=== PATIENT | female | born 1960 | race American Indian/Alaskan Native ===

== ENCOUNTER 2020-11-06 13:41 | Observation (INO) | payer OTHER ==
[2020-11-06] MEDS ORDERED: METOCLOPRAMIDE 10 MG/2 ML INJ IV ONE (16:37)
[2020-11-06] MEDS ORDERED: LACTATED RINGERS 1,000 ML IV ONE (16:37)
[2020-11-06] MEDS ORDERED: MORPHINE 4 MG/1 ML INJ IV ONE (16:37)
[2020-11-06] MEDS ORDERED: NITROGLYCERIN 0.4 MG TAB SUBL SL PRN ×2 (16:38→23:58)
--- NOTE | 2020-11-06 16:43 | Emergency Department Report ---
ED General Adult HPI - General Chief complaint: Headache Stated complaint: Headache, chest pain, back pain, lower abdominal pain PUI?: No Time Seen by Provider: 11/06/20 16:10 Source: patient, RN notes reviewed Mode of arrival: Ambulatory Limitations: No Limitations - History of Present Illness Initial comments: The patient was evaluated in the emergency department for symptoms described in the history of present illness. He/she was evaluated in the context of the global COVID-19 pandemic, which necessitated consideration that the patient might be at risk for infection with the virus that causes COVID-19. Institutional protocols and algorithms that pertain to the evaluation of patients at risk for COVID-19 are in a state of rapid change based on information released by regulatory bodies including the CDC and federal and state organizations. These policies and algorithms were followed during the patient's care in the emergency department. Please note that these policies, procedures and recommendations changed on a rapid basis. Past medical history: Diabetes, hypertension, obesity, glaucoma Patient is a 60-year-old female. She is not known to myself previously. She is referred to the emergency room by her primary care doctor for hypertension. The patient presents to the ER with multiple complaints. Patient's first complaint is right sided paralumbar lower back pain. This is present for 2 to 3 days. It does not radiate anywhere. It does not move down the legs. There is no saddle anesthesia, bladder or bowel retention or incontinence. No nausea, vomiting or diarrhea. No extremity weakness or numbness. No urinary symptoms. Has not improved with [id number] analgesia. The patient states no history of abdominal surgeries. The patient's next complaint is headache. The headache is frontal. The headache is present for 2 days. The headache is not sudden or thunderclap in nature. The headache is not maximal in intensity. That patient also describes nonspecific binocular blurry vision, present for a few days, "because I think I ran out of my brimonidine." The patient denies ocular pain. The patient denies temporal headache, and jaw claudication. The patient's next complaint is chest pain. The chest pain is central and right-sided. It does not radiate to the back, arms or neck. There is no vomiting. There is mild sweating. The patient denies travel, surgery, immob ilization, DVT and pulmonary embolism risk factors. Patient endorses a personal history of premature coronary artery disease in her father, who of a myocardial infarction at the age of 54. The patient herself has taken aspirin within the past week x2, has not had a cardiac risk ratification recently. To the best of her knowledge, there is no personal family history of DVT or pulmonary embolism. Mother and sibling medical history noncontributory. The patient has not taken any analgesia today The patient denies loss of taste and smell. The patient is COVID-19 vaccinated. The patient denies Covid exposures. -: Gradual, days(s) Location: head, chest, back Severity scale (0 -10): 0 Quality: aching Consistency: intermittent Improves with: rest Worsens with: movement - Related Data Allergies Allergy/AdvReac Type Severity Reaction Status Date / Time No Known Allergies Allergy Unverified 11/06/20 14:13 ED Review of Systems ROS: Stated complaint: HYPERTENSIVE Other details as noted in HPI Constitutional: other (Denies loss of taste and). denies: fever, malaise, weakness Eyes: eye pain, vision change. denies: eye discharge ENT: denies: epistaxis Respiratory: denies: cough Cardiovascular: chest pain Gastrointestinal: denies: nausea, vomiting, diarrhea, hematemesis, melena, hematochezia Genitourinary: denies: dysuria Musculoskeletal: back pain Neurological: headache. denies: weakness, numbness, paresthesias Hematological/Lymphatic: denies: easy bleeding ED Physical Exam - General Limitations: No Limitations General appearance: alert, in no apparent distress - Head Head exam: Present: atraumatic, normocephalic - Eye Eye exam: Present: normal appearance, PERRL, EOMI, other (Visual acuity intact to finger counting, color perception, reading at a close distance). Absent: nystagmus - ENT ENT exam: Present: normal exam, normal orophraynx, mucous membranes moist, normal external ear exam - Neck Neck exam: Present: normal inspection, full ROM. Absent: tenderness, meningismus - Respiratory Respiratory exam: Present: normal lung sounds bilaterally. Absent: respiratory distress, wheezes, rales, rhonchi, stridor, decreased breath sounds - Cardiovascular Cardiovascular Exam: Present: regular rate, normal rhythm, normal heart sounds. Absent: bradycardia, tachycardia, irregular rhythm, systolic murmur, diastolic murmur, rubs, gallop - GI/Abdominal GI/Abdominal exam: Present: soft, tenderness (Right lower quadrant tenderness to deep palpation). Absent: distended, guarding, rebound, rigid, pulsatile mass - Extremities Exam Extremities exam: Present: normal inspection, full ROM, other (2+ pulses noted in the bilateral upper and lower extremities. There is no palpable cord. negative Homans sign. Muscular compartments are soft. The pelvis is stable.). Absent: pedal edema, calf tenderness - Back Exam Back exam: Present: normal inspection. Absent: tenderness, CVA tenderness (R), CVA tenderness (L), paraspinal tenderness, vertebral tenderness - Neurological Exam Neurological exam: Present: alert, oriented X3, other (No facial droop. Tongue midline. Extraocular movements intact bilaterally. Facial sensation intact to light touch in V1, V2, V3 distribution bilaterally. 5 and a 5 strength in 4 extremities. Sensation intact to light touch in 4 extremities.). Absent: motor sensory deficit (There is no past-pointing. There is no pronator drift. There is normal [id number]) - Psychiatric Psychiatric exam: Present: normal affect, normal mood - Skin Skin exam: Present: warm, dry, intact, normal color. Absent: rash ED Course Vital Signs 11/06/20 11/06/20 11/06/20 14:12 15:31 15:32 Temperature 98.6 F Pulse Rate 75 67 Respiratory 16 19 16 Rate Blood Pressure 178/94 154/83 [Right] O2 Sat by Pulse 98 99 98 Oximetry 11/06/20 20:10 Temperature 98.2 F Pulse Rate 63 Respiratory 15 Rate Blood Pressure 143/65 [Right] O2 Sat by Pulse 98 Oximetry - Reevaluation(s) Reevaluation #1: 11/06/20 16:42 Differential diagnosis, including but not limited to: Renal colic, appendicitis, psoas abscess, mechanical back pain, migraine headache, tension headache, cluster headache, GERD, gastritis, hiatal hernia, pneumonia, acute coronary sy ndrome, pulmonary embolism Assessment and plan 60-year-old female with multiple complaints. Complaints 1, right-sided paralumbar back pain, with right lower quadrant abdominal tenderness on deep palpation. Obtain CT scan of the abdomen pelvis. Treat symptoms. Obtain appropriate laboratory studies, and urinalysis. No pulsatile abdominal mass, and equal strength and sensation in the lower ext remities, this history and examination are not suggestive of epidural compression syndrome. Complaint #2, headache. GCS 15, NIH score of 0. Visual acuity intact to finger counting, color perception, reading at a close distance no temporal tenderness, no claudication, cornea not cloudy, there is no direct or consensual photophobia, and pupillary response is brisk and symmetric bilaterally. Supp ortive care. Complaints #3, chest pain. Moderate risk for major adverse cardiac event as per heart score. Not currently tachycardic, tachypneic or hypoxic, denies DVT and pulmonary embolism risk factors. EKG abnormal, with a left axis, and a left anterior fascicular block. Place patient on cardiac nurse specialist, obtain appropriate laboratory studies, including troponin and D-dimer, given left axis deviation. Obtain CT scan of the chest if required by Marcello-dimer, recommend admission for cardiac risk ratification once initial data points have resulted. I discussed this plan of care with the patient. She has articulated understanding. She is agreeable to this plan of care. All questions answered. Reassess after data points have resulted. 11/06/20 16:43 11/06/20 18:41 Troponin negative. D-dimer elevated. CT angiogram chest ordered. CT scan abdomen pelvis ordered. 11/06/20 22:45 CT scan of the brain negative for acute findings. CT scan of the chest negative for pulmonary embolism and acute findings. CT scan abdomen pelvis shows hepatic steatosis, as well as fibroid uterus. Urin alysis suggest pyuria with bacteriuria. The patient denies irritative and obstructive urinary symptoms. Patient will be admitted to the medical service for cardiac risk ratification. I discussed this with the patient. She is agreeable to this plan of care. Patient to be admitted to the medical service under the care of Dr. Sherwood ED Medical Decision Making - Lab Data Result diagrams: 11/06/20 17:44 11/06/20 17:44 Vital Signs 11/06/20 11/06/20 11/06/20 14:12 15:31 15:32 Temperature 98.6 F Pulse Rate 75 67 Respiratory 16 19 16 Rate Blood Pressure 178/94 154/83 [Right] O2 Sat by Pulse 98 99 98 Oximetry Lab Results 11/06/20 Range/Units 15:21 POC Glucose 130 H (70-105) mg/dL - EKG Data -: EKG Interpreted by Dc EKG shows normal: sinus rhythm Rate: normal - EKG Data When compared to previous EKG there are: previous EKG unavailable 11/06/20 16:46 EKG is interpreted at 14: 19 Sinus rhythm, 73 bpm. Normal P wave axis, left axis deviation, left anterior fascicular block, left ventricular hypertrophy. QTC 3 9 8 ms. Abnormal EKG. Not a STEMI. No prior for comparison. - Radiology Data Radiology results: pending, report reviewed, image reviewed CHEST 1 VIEW 11/06/2020 4:15 PM INDICATION / CLINICAL INFORMATION: acute chest pain. COMPARISON: None available. FINDINGS: SUPPORT DEVICES: None. HEART / MEDIASTINUM: No significant abnormality. LUNGS / PLEURA: No significant pulmonary or pleural abnormality. No pneumothorax. ADDITIONAL FINDINGS: No significant additional findings. IMPRESSION: 1. No acute findings. Signer Name: Yazan Castillo MD Signed: 11/06/2020 4:16 PM Workstation Name: [id number] CT HEAD WITHOUT CONTRAST INDICATION / CLINICAL INFORMATION: Headache and blurry vision. TECHNIQUE: All CT scans at this location are performed using CT dose reduction for ALARA by means of automated exposure control. COMPARISON: None available. FINDINGS: HEMORRHAGE: None. EXTRA-AXIAL SPACES: Normal in size and morphology for the patient's age. VENTRICULAR SYSTEM: Normal in size and morphology for the patient's age. CEREBRAL PARENCHYMA: No significant abnormality. No acute territorial infarct. MIDLINE SHIFT / HERNIATION: None. CEREBELLUM / BRAINSTEM: No significant abnormality. ORBITS: Normal as visualized. SOFT TISSUES: Mild soft tissue swelling of the left forehead. SKULL: No significant abnormality. PARANASAL SINUSES / MASTOID AIR CELLS: Normal as visualized. ADDITIONAL FINDINGS: None. IMPRESSION: 1. No acute intracranial abnormality. 2. Mild left forehead soft tissue swelling. Signer Name: Marcello Farooq MD Signed: 11/06/2020 9:05 PM CTA CHEST WITH CONTRAST INDICATION / CLINICAL INFORMATION: Acute chest pain, left axis deviation. TECHNIQUE: Axial CT images were obtained through the chest after injection of 100 mL Omnipaque 350 IV contrast. 3 plane MIP and/or 3D reconstructions were produced. All CT scans at this location are performed using CT dose reduction for [employer] by means of automated exposure control. COMPARISON: None available. FINDINGS: PULMONARY ARTERIES: No pulmonary emboli. THORACIC AORTA: No significant abnormality. HEART: No significant abnormality. CORONARY ARTERY CALCIFICATION: None. MEDIASTINUM / VICKIE: No significant abnormality. PLEURA: No pleural effusion. No pneumothorax. LUNGS: No acute air space or interstitial disease. Small amount of mucus in the left mainstem bronchus. ADDITIONAL FINDINGS: None. UPPER ABDOMEN: No acute findings. SKELETAL STRUCTURES: No significant osseous abnormality. IMPRESSION: 1. No CT evidence for pulmonary embolism. 2. No acute pulmonary or pleural findings. Small amount of mucus in the left mainstem bronchus. Signer Name: Marcello Farooq MD Signed: 11/06/2020 9:08 PM Workstation Name: [id number] CT ABDOMEN AND PELVIS WITH CONTRAST INDICATION / CLINICAL INFORMATION: Acute right lower quadrant, right paralumbar back. TECHNIQUE: Axial CT images were obtained through the abdomen and pelvis after 100 mL Omnipaque [address] scans at this location are performed using CT dose reduction for ALARA by means of automated exposure control. COMPARISON: None available. FINDINGS: LOWER CHEST: No significant abnormality. LIVER: Mildly enlarged and hypodense characteristic of fatty infiltration. GALLBLADDER: No significant abnormality. BILE DUCTS: No significant abnormality. PANCREAS: No significant abnormality. SPLEEN: No significant abnormality. ADRENALS: No significant abnormality. RIGHT KIDNEY / URETER: No significant abnormality. LEFT KIDNEY / URETER: No significant abnormality. STOMACH / SMALL BOWEL: No significant abnormality. COLON: Diverticulosis without acute inflammation. APPENDIX: Not visualized. PERITONEUM: No free fluid. No free air. No fluid collection. LYMPH NODES: No significant adenopathy. AORTA / ARTERIES: No significant abnormality. IVC / VEINS: No significant abnormality. URINARY BLADDER: No significant abnormality. REPRODUCTIVE ORGANS: Enlarged containing multiple fibroids some of which are calcified. ADDITIONAL FINDINGS: None. SKELETAL SYSTEM: No significant abnormality. IMPRESSION: 1. No acute process in the abdomen or pelvis. No inflammatory process. 2. Enlarged uterus with multiple fibroids. 3. Hepatic steatosis. Signer Name: Marcello Farooq MD Signed: 11/06/2020 9:11 PM Critical care attestation.: If time is entered above; I have spent that time in minutes in the direct care of this critically ill patient, excluding procedure time. ED Disposition Clinical Impression: Hypertension, BMI 34.0-34.9,adult, Right lower quadrant abdominal pain, Acute chest pain, Headache, Bacteriuria with pyuria, Fibroid, uterine, Hepatic steatosis Disposition: 09 ADMITTED INPATIENT Is pt being admited?: Yes Does the pt Need Aspirin: No Condition: Good Instructions: Chest Pain (ED), Hypertension (ED) Referrals: PRIMARY CARE,MD [Primary Care Provider] - 3-5 Days Heart Score - HEART Score History: Slightly suspicious EKG: Non-specific Age: 45-65 Risk factors: > 3 risk factors or hx of atherosclerotic disease (Obesity, diabetes, hypertension, family history) Troponin: < normal limit HEART Score: 4 - EKG Read Time Time EKG Completed: 14:19 EKG Read Time: 14:19 - Critical Actions Critical Actions: 4-6 pts:12-16.6% risk of adverse cardiac event. Should be admitted
[2020-11-06 17:15] LABS: Bacteria,Urine 1+ /HPF (Negative); Bilirubin,Urine NEG (Negative); Blood,Urine NEG (Negative); Color,Urine Yellow (Yellow); Mucus,Urine FEW /HPF; Protein,Urine <15 mg/dL mg/dL (Negative); Urobilinogen,Urine < 2.0 mg/dL (<2.0)
--- NOTE | 2020-11-06 17:21 | XRay Report ---
CHEST 1 VIEW 11/06/2020 4:15 PM INDICATION / CLINICAL INFORMATION: acute chest pain. COMPARISON: None available. FINDINGS: SUPPORT DEVICES: None. HEART / MEDIASTINUM: No significant abnormality. LUNGS / PLEURA: No significant pulmonary or pleural abnormality. No pneumothorax. ADDITIONAL FINDINGS: No significant additional findings. IMPRESSION: 1. No acute findings. Signer Name: Yazan Castillo MD Signed: 11/06/2020 5:16 PM Workstation Name: [id number]
[2020-11-06 17:57] LABS: Basophils % (Auto) 0.7 % (0.0-1.8); Eosinophils # (Auto) 0.1 K/mm3 (0.0-0.4); Eosinophils % (Auto) 0.9 % (0.0-4.3); Hemoglobin 14.3 gm/dl (10.1-14.3); Lymphocytes # (Auto) 2.3 K/mm3 (1.2-5.4); Mean Corpuscular HGB Conc 34 % (30-34); Mean Corpuscular Volume 87 fl (79-97); Monocytes # (Auto) 0.5 K/mm3 (0.0-0.8); Monocytes % (Auto) 8.1 % (0.0-7.3); Platelet Count 231 K/mm3 (140-440); Red Blood Count 4.85 M/mm3 (3.65-5.03); Red Cell Distribution Width 14.1 % (13.2-15.2)
[2020-11-06 18:06] LABS: INR 0.98 (0.87-1.13)
[2020-11-06 18:17] LABS: Alanine Aminotransferase 19 units/L (7-56); Albumin 4.5 g/dL (3.9-5); Blood Urea Nitrogen 13 mg/dL (7-17); Hemolysis Index 11
[2020-11-06 18:31] LABS: BUN/Creatinine Ratio 33
--- NOTE | 2020-11-06 22:09 | Cat Scan Report ---
CT HEAD WITHOUT CONTRAST INDICATION / CLINICAL INFORMATION: Headache and blurry vision. TECHNIQUE: All CT scans at this location are performed using CT dose reduction for ALARA by means of automated exposure control. COMPARISON: None available. FINDINGS: HEMORRHAGE: None. EXTRA-AXIAL SPACES: Normal in size and morphology for the patient's age. VENTRICULAR SYSTEM: Normal in size and morphology for the patient's age. CEREBRAL PARENCHYMA: No significant abnormality. No acute territorial infarct. MIDLINE SHIFT / HERNIATION: None. CEREBELLUM / BRAINSTEM: No significant abnormality. ORBITS: Normal as visualized. SOFT TISSUES: Mild soft tissue swelling of the left forehead. SKULL: No significant abnormality. PARANASAL SINUSES / MASTOID AIR CELLS: Normal as visualized. ADDITIONAL FINDINGS: None. IMPRESSION: 1. No acute intracranial abnormality. 2. Mild left forehead soft tissue swelling. Signer Name: Marcello Farooq MD Signed: 11/06/2020 10:05 PM Workstation Name: [id number]
--- NOTE | 2020-11-06 22:12 | Cat Scan Report ---
CTA CHEST WITH CONTRAST INDICATION / CLINICAL INFORMATION: Acute chest pain, left axis deviation. TECHNIQUE: Axial CT images were obtained through the chest after injection of 100 mL Omnipaque 350 IV contrast. 3 plane MIP and/or 3D reconstructions were produced. All CT scans at this location are per formed using CT dose reduction for ALARA by means of automated exposure control. COMPARISON: None available. FINDINGS: PULMONARY ARTERIES: No pulmonary emboli. THORACIC AORTA: No significant abnormality. HEART: No significant abnormality. CORONARY ARTERY CALCIFICATION: None. MEDIASTINUM / VICKIE: No significant abnormality. PLEURA: No pleural effusion. No pneumothorax. LUNGS: No acute air space or interstitial disease. Small amount of mucus in the left mainstem bronchu s. ADDITIONAL FINDINGS: None. UPPER ABDOMEN: No acute findings. SKELETAL STRUCTURES: No significant osseous abnormality. IMPRESSION: 1. No CT evidence for pulmonary embolism. 2. No acute pulmonary or pleural findings. Small amount of mucus in the left mainstem bronchus. Signer Name: Marcello Farooq MD Signed: 11/06/2020 10:08 PM Workstation Name: [id number]
--- NOTE | 2020-11-06 22:16 | Cat Scan Report ---
CT ABDOMEN AND PELVIS WITH CONTRAST INDICATION / CLINICAL INFORMATION: Acute right lower quadrant, right paralumbar back. TECHNIQUE: Axial CT images were obtained through the abdomen and pelvis after 100 mL Omnipaque [address] scans at this location are performed using CT dose reduction for ALARA by means of automated exposure control. COMPARISON: None available. FINDINGS: LOWER CHEST: No significant abnormality. LIVER: Mildly enlarged and hypodense characteristic of fatty infiltration. GALLBLADDER: No significant abnormality. BILE DUCTS: No significant abnormality. PANCREAS: No significant abnormality. SPLEEN: No significant abnormality. ADRENALS: No significant abnormality. RIGHT KIDNEY / URETER: No significant abnormality. LEFT KIDNEY / URETER: No significant abnormality. STOMACH / SMALL BOWEL: No significant abnormality. COLON: Diverticulosis without acute inflammation. APPENDIX: Not visualized. PERITONEUM: No free fluid. No free air. No fluid collection. LYMPH NODES: No significant adenopathy. AORTA / ARTERIES: No significant abnormality. IVC / VEINS: No significant abnormality. URINARY BLADDER: No significant abnormality. REPRODUCTIVE ORGANS: Enlarged containing multiple fibroids some of which are calcified. ADDITIONAL FINDINGS: None. SKELETAL SYSTEM: No significant abnormality. IMPRESSION: 1. No acute process in the abdomen or pelvis. No inflammatory process. 2. Enlarged uterus with multiple fibroids. 3. Hepatic steatosis. Signer Name: Marcello Farooq MD Signed: 11/06/2020 10:11 PM Workstation Name: [id number]
[2020-11-06] MEDS ORDERED: ASPIRIN 81 MG TAB CHEW PO ONE (22:45)
[2020-11-06] MEDS ORDERED: NITROFURANTOIN MONOHYD/M-CRYST 100 MG CAP PO ONE (22:47)
--- NOTE | 2020-11-06 23:52 | History and Physical Report ---
History of Present Illness Date of examination: 11/06/20 Date of admission: 11/06/20 22:47 Chief complaint: chest pain History of present illness: This is 60-year-old who presented to ED with a headache, chest pain and elevated blood pressure. She says she went to urgent care with a complaint of headache and lower back pain, her blood pressure was elevated in urgent care and they sent her to the hospital. Patient has past medical history of hypertension, diabetes, glaucoma and uterine fibroids. patient denies tobacco use, alcohol use, and illicit drug use. Patient reported her father of coronary artery disease and [place] at the age of 54. I reviewed patient medication record, medical record, and vital signs. chest x-ray and CTA of the chest were done with no acute finding. CT of the abdomen and pelvic done -it showed enlarged uterus with multiple fibroids and hepatic steatosis. Echo ordered. Patient may need stress test to rule out cardiac ischemia. Troponin done was negative. environment artist has been consulted Past History Past Medical History: diabetes, hyperthyroidism, hyperlipidemia, other (Uterine fibroid) Past Surgical History: appendectomy, Other (Appendectomy, tubal ligation) Social history: full code. denies: smoking, alcohol abuse, prescription drug abuse, IV drug use Family history: hypertension (Father of [place] at age of 54) Medications and Allergies Allergies Allergy/AdvReac Type Severity Reaction Status Date / Time No Known Allergies Allergy Verified 11/07/20 00:11 Active Meds: Active Medications Nitroglycerin (Nitroglycerin 0.4 Mg Tab Subl) 0.4 mg SL .Q5MIN PRN PRN Reason: Chest Pain Review of Systems Constitutional: weakness Ears, nose, mouth and throat: no epistaxis, no bleeding gums Cardiovascular: chest pain, high blood pressure Respiratory: no congestion Gastrointestinal: melena Genitourinary Female: no urinary frequency, no urgency Rectal: no hemorrhoids Musculoskeletal: muscle weakness, muscle cramps Integumentary: no rash, no pruritis, no redness Neurological: no seizures, no syncope Psychiatric: anxiety Hematologic/Lymphatic: no easy bruising, no easy bleeding, no lymphadenopathy, no lymphedema Allergic/Immunologic: no urticaria Exam - Constitutional Vitals: Temp Pulse Resp BP Pulse Ox 98.2 F 63 18 143/65 98 11/06/20 20:10 11/06/20 20:10 11/06/20 20:10 11/06/20 20:10 11/06/20 20:10 General appearance: Present: mild distress, well-nourished, obese - EENT Eyes: Present: PERRL ENT: hearing intact, clear oral mucosa - Neck Neck: Present: supple, normal ROM - Respiratory Respiratory effort: normal Respiratory: bilateral: CTA - Cardiovascular Heart Sounds: Present: S1 & S2. Absent: rub, click - Extremities Extremities: pulses symmetrical, No edema Peripheral Pulses: within normal limits - Abdominal General gastrointestinal: Present: soft, tender, non-distended, normal bowel sounds Female genitourinary: Present: normal - Integumentary Integumentary: Present: clear, warm, dry - Musculoskeletal Musculoskeletal: gait normal, strength equal bilaterally - Psychiatric Psychiatric: appropriate mood/affect, intact judgment & insight - Neurologic Neurologic: CNII-XII intact, moves all extremities - Allied Health Allied health notes reviewed: nursing HEART Score - HEART Score EKG: Non-specific Age: 45-65 Risk factors: > 3 risk factors or hx of atherosclerotic disease (Obesity, diabetes, hypertension, family history) Troponin: Troponin T < 0.010 ng/mL (0.00-0.029) 11/06/20 17:44 Troponin: < normal limit - Critical Actions Critical Actions: 4-6 pts:12-16.6% risk of adverse cardiac event. Should be admitted Results - Labs CBC & Chem 7: 11/07/20 04:20 11/07/20 04:20 Labs: Abnormal lab results 11/06/20 11/06/20 11/06/20 Range/Units 15:21 17:39 17:44 Lymph % (Auto) 38.0 H (13.4-35.0) % [place] % (Auto) 8.1 H (0.0-7.3) % D-Dimer 448.71 H (0-234) ng/mlDDU Creatinine (0.6-1.2) mg/dL Glucose (65-100) mg/dL POC Glucose 130 H (70-105) mg/dL 11/06/20 Range/Units 17:44 Lymph % (Auto) (13.4-35.0) % [place] % (Auto) (0.0-7.3) % D-Dimer (0-234) ng/mlDDU Creatinine 0.4 L (0.6-1.2) mg/dL Glucose 135 H (65-100) mg/dL POC Glucose (70-105) mg/dL Assessment and Plan - Patient Problems (1) Acute chest pain Current Visit: Yes Status: Acute Plan to address problem: Questionable cause-likely due to elevated blood pressure Troponin level normal Echocardiogram and cardiology consult As needed sublingual nitrate. (2) Hepatic steatosis Current Visit: Yes Status: Acute Plan to address problem: CT of the abdomen positive for fatty liver Patient denies chronic alcohol use Patient advised to start regular exercise, healthy diet, avoid fatty fried foods and foods rich in concentrated sweeteners Discussed with management with patient. (3) Fibroid, uterine Current Visit: Yes Status: Acute Plan to address problem: Supportive care Patient advised to follow-up with her ARCADE ATTENDANT (4) Hypertension Current Visit: Yes Status: Acute Plan to address problem: Monitor blood pressure Resume home antihypertensive As needed hydralazine (5) Right lower quadrant abdominal pain Current Visit: Yes Status: Acute Plan to address problem: Patient reports right lower abdominal pain pain level 4-5 CT of the abdomen showed uterine fibroid and fatty liver-No acute process Pain management as needed (6) Diabetes mellitus Current Visit: Yes Status: Acute Plan to address problem: Monitor blood sugar with sliding scale protocol hemoglobin [id number] Resume home antihyperglycemic (7) DVT prophylaxis Current Visit: Yes Status: Acute Plan to address problem: Lovenox subcutaneous
[2020-11-06] MEDS ORDERED: ALUM-MAG HYDROXIDE-SIMETHICONE 200-200-20MG/5ML ORAL LIQD 30 ML PO PRN (23:58)
[2020-11-06] MEDS ORDERED: NALOXONE 0.4 MG/1 ML INJ IV PRN (23:58)
[2020-11-06] MEDS ORDERED: ONDANSETRON 4 MG/2 ML INJ IV PRN (23:58)
[2020-11-06] MEDS ORDERED: ACETAMINOPHEN 325 MG TAB PO PRN ×2 (23:58)
[2020-11-06] MEDS ORDERED: oxyCODONE /ACETAMINOPHEN 5-325MG TAB PO PRN (23:58)
[2020-11-06] MEDS ORDERED: MORPHINE 4 MG/1 ML INJ IV PRN ×2 (23:58)
[2020-11-06] MEDS ORDERED: MORPHINE 2 MG/1 ML INJ IV PRN (23:58)
[2020-11-06] MEDS ORDERED: traMADol 50 MG TAB PO PRN (23:58)
[2020-11-06] MEDS ORDERED: SENNOSIDES 8.6 MG TAB PO PRN (23:58)
[2020-11-06] MEDS ORDERED: MAGNESIUM HYDROXIDE (MOM) ORAL LIQD UDC PO PRN (23:58)
[2020-11-07 05:01] LABS: Basophils # (Auto) 0.1 K/mm3 (0.0-0.1); Eosinophils # (Auto) 0.1 K/mm3 (0.0-0.4); Eosinophils % (Auto) 1.5 % (0.0-4.3); Hematocrit 38.7 % (30.3-42.9); Hemoglobin 13.4 gm/dl (10.1-14.3); Lymphocytes # (Auto) 2.3 K/mm3 (1.2-5.4); Lymphocytes % (Auto) 39.1 % (13.4-35.0); Mean Corpuscular HGB Conc 35 % (30-34); Mean Corpuscular Volume 85 fl (79-97); Monocytes # (Auto) 0.5 K/mm3 (0.0-0.8); Monocytes % (Auto) 9.1 % (0.0-7.3); Platelet Count 241 K/mm3 (140-440); Red Blood Count 4.53 M/mm3 (3.65-5.03); Red Cell Distribution Width 14.2 % (13.2-15.2)
[2020-11-07 05:40] LABS: Blood Urea Nitrogen 11 mg/dL (7-17); Calcium 9.7 mg/dL (8.4-10.2); Hemolysis Index 6
[2020-11-07 05:41] LABS: BUN/Creatinine Ratio 28
[2020-11-07] MEDS ORDERED: hydrALAZINE 20 MG/1 ML INJ IV PRN (05:52)
[2020-11-07 06:09] LABS: Chol/HDL Ratio 4.12 %
[2020-11-07] MEDS ORDERED: INSULIN LISPRO 100 UNIT/ML SUB-Q SCH (07:30)
[2020-11-07] MEDS ORDERED: metFORMIN 500 MG TAB PO SCH (08:00)
[2020-11-07] MEDS ORDERED: COMBIGAN 0.2-0.5% OPHTH SOLN OU SCH (10:00)
[2020-11-07] MEDS ORDERED: ENOXAPARIN 40 MG/0.4 ML INJ SUB-Q SCH (10:00)
[2020-11-07] MEDS ORDERED: LISINOPRIL 40 MG TAB PO SCH (10:00)
[2020-11-07] MEDS ORDERED: FAMOTIDINE 20 MG/2 ML INJ IV SCH (10:00)
[2020-11-07 10:24] VITALS: BP 149/97
--- NOTE | 2020-11-07 11:18 | Discharge Summary ---
Providers - Providers Date of Admission: 11/06/20 22:47 Date of discharge: 11/07/20 Attending physician: KAMILAH LLAMAS MD 11/06/20 Consult to Cardiac Rehabilitation [CONS] Routine Reason For Exam: Phase I 11/06/20 23:59 Consult to Cardiology [CONS] Routine Consulting Provider: KRISTI PARRY Reason For Exam: chest pain Primary care physician: COBOL APPLICATION DEVELOPER Hospitalization Reason for admission: Chest pain, controlled Condition: Stable Hospital course: This is 60-year-old who presented to ED with a headache, chest pain and elevated blood pressure. She says she went to urgent care with a complaint of headache and lower back pain, her blood pressure was elevated in urgent care and they sent her to the hospital. Patient has past medical history of hypertension, diabetes, glaucoma and uterine fibroids. patient denies tobacco use, alcohol use, and illicit drug use. Patient reported her father of coronary artery disease and [place] at the age of 54. I reviewed patient medication record, medical record, and vital signs. chest x-ray and CTA of the chest were done with no acute finding. CT of the abdomen and pelvic done -it showed enlarged uterus with multiple fibroids and hepatic steatosis. Echo ordered. Patient may need stress test to rule out cardiac ischemia. Troponin done was negative. ca rdiologist has been consulted Hospital course Patient was admitted to hospitalist service, CTA chest was done and normal. EKG showed no ST elevation. Troponin were negative. Cardiology was consulted. Stress test was ordered but was not done on the weekend. Patient does not want to stay. She left AMA before she was evaluated by fiberglass pipe covering supervisor. Risk-benefit was explained to the patient and she understood the risks including . Disposition: LEFT AGAINST MEDICAL ADVICE Final Discharge Diagnosis (Prints w/discharge instructions): Chest pain. Uncontrolled hypertension. Diabetes mellitus Time spent for discharge: 25 minutes - Discharge Diagnoses (1) Acute chest pain Status: Acute (2) BMI 34.0-34.9,adult Status: Acute (3) Diabetes mellitus Status: Acute (4) Hepatic steatosis Status: Acute (5) Hypertension Status: Acute Core Measure Documentation - Palliative Care Palliative Care/ Comfort Measures: Not Applicable - Core Measures Any of the following diagnoses?: none Exam - Physical Exam Narrative exam: Not in cardiopulmonary distress. The patient is obese Vital signs as documented. Head exam is unremarkable. No scleral icterus . Neck is without jugular venous distension, thyromegaly, or carotid bruits. Lungs are clear to auscultation. Cardiac exam reveals regular rate and Rhythm. Abdominal exam reveals normal bowel sounds, nontender, no organomegaly. Extremities are nonedematous and both femoral and pedal pulses are normal. RIVETER HAND: Alert and oriented 3. No focal weakness. - Constitutional Vitals: Temp Pulse Resp BP Pulse Ox 98.2 F 69 14 149/97 100 11/06/20 20:10 11/07/20 09:31 11/07/20 09:31 11/07/20 09:31 11/07/20 09:31 Plan Activity: no restrictions Weight Bearing Status: Full Weight Bearing Diet: low salt, diabetic Follow up with: PRIMARY CAREMD [Primary Care Provider] - 3-5 Days Forms: AMA Form
--- NOTE | 2020-11-07 12:27 | Electrocardiograph Report ---
[facility] Test Date: 2020-11-06 Test Time: 14:19:14 Pat Name: RADHA GLEASON Department: Room: [place] [address] Gender: F Service Station Attendant: ALISSA : 1960 Requested By: JOE YUSUF Order Number: [id number] Reading MD: Domenic Swain Measurements Intervals [place] Rate: 73 P: 59 FL: 139 QRS: -53 QRSD: 91 T: -39 QT: 362 QTc: 398 Interpretive Statements Sinus rhythm Left anterior fascicular block Left ventricular hypertrophy Borderline T abnormalities, diffuse leads No previous ECG available for comparison Electronically Signed On 11-07-2020 12:26:43 EDT by Domenic Swain
[2020-11-08] MEDS ORDERED: ASPIRIN 81 MG TAB CHEW PO SCH (10:00)
== END 2020-11-07 10:29 | disposition left against medical advice (07) ==
LOC: ED 13:41 → 4A 22:47
PROVIDERS: ADMIT Hospitalist; ATTEND Internal Medicine
DX: R07.89 Other chest pain (principal); K76.0 Fatty (change of) liver, not elsewhere classified; D25.9 Leiomyoma of uterus, unspecified; I10 Essential (primary) hypertension; E11.9 Type 2 diabetes mellitus without complications; R10.31 Right lower quadrant pain; R82.71 Bacteriuria; R51.9 Headache, unspecified; E05.90 Thyrotoxicosis, unspecified without thyrotoxic crisis or storm; E66.9 Obesity, unspecified; H40.9 Unspecified glaucoma; E78.5 Hyperlipidemia, unspecified; Z68.34 Body mass index [BMI] 34.0-34.9, adult; Z90.49 Acquired absence of other specified parts of digestive tract; Z98.51 Tubal ligation status
CPT/HCPCS: 36415; 70450; 71045; 71275; 74177; 80048; 80053; 80061; 81001; 82962; 83036; 83690; 84484; 85025; 85379; 85610; 93005; 93306; 96374; 96375; 99285; G0378; J2270; J2765; J7120; Q9967